=== PATIENT | male | born 1965 | race Two or more races ===

== ENCOUNTER 2019-09-11 17:45 | Emergency (ER) | payer OTHER ==
[~2019-09-11] VITALS: Ht 180.3 cm; Wt 104.3 kg
[2019-09-11 22:16] VITALS: BP 126/75
[2019-09-11] MEDS ORDERED: IBUPROFEN 600 MG TAB PO ONE (22:30)
== END 2019-09-11 22:59 | disposition home or self-care (01) ==
LOC: ER 17:45
DX: S13.4XXA Sprain of ligaments of cervical spine, initial encounter (principal); V49.49XA Driver injured in collision with other motor vehicles in traffic accident, initial encounter; Y93.89 Activity, other specified; Y92.89 Other specified places as the place of occurrence of the external cause; Y99.8 Other external cause status
CPT/HCPCS: 72125